=== PATIENT | male | born 1955 | race Caucasian/White ===

== ENCOUNTER 2016-12-20 11:34 | Emergency (ER) | payer OTHER ==
--- NOTE | ~2016-12-20 | CR243 ---
[facility] [[email or web address]]. [facility] A Service of [facility] & [facility] RADIOLOGY TEXT RESULTS PATIENT: RAE ERVIN LOCATION: SED : 53 UNIT #: [id number] AGE: [address]: KELLY KRAMER PA-C SEX: M ORDER DR: [id number] [place] [id number] E MR#: [id number] Acc #: [id number] NAME: RAE ERVIN : 1955 SEX: M STUDY DATE/TIME: 12/20/2016 12:15 UNIT: SED ROOM: STUDY DESCRIPTION: CR Thoracic Spine 3 Views Attending Physician: Kelly Kramer Pa-C Ordering Physician: Kelly Kramer Pa-C Primary Care Physician: Dejuan Ansari Jr., M.D. MEDICAL IMAGING REPORT This report is preliminary unless electronic signature is present. EXAM 3 views thoracic spine INDICATION Upper back pain and spasms for 5 days after working under the dash of his car. FINDINGS No acute fracture or subluxation of the thoracic spine is identified. Thoracic vertebral body alignment appears within normal limits. 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 No aggressive osseous abnormalities are seen. IMPRESSION No acute disease. Dictated by... Marjan Zuh M.D. THIS IS AN ELECTRONICALLY VERIFIED REPORT Marjan Zhu M.D. at 12/20/2016 4:45 PM SIMON/jw TD: 12/20/2016 14:44 JOB #: [id number] MEDICAL IMAGING REPORT Page 1 of 1
[~2016-12-20 11:34] MED LIST: AMIODARONE PO; ASPIRIN81 M1 PO; CLOPIDOGREL75 MG PO; COUMADIN5 MG PO; FARXIGA10 MG PO; GLUCOPHAGE500 M1 PO; HYDROCODON-ACE1 EAC7 PO; LASIX PO; LEVAQUIN250 MG PO; LIPITOR PO; LISINOPRIL-HCTZ1 T19 PO; LOPRESSOR PO; PRILOSEC PO; WARFARIN SODIU7.5 MG PO; ZESTORETIC PO
[2016-12-20 12:04] LABS: BASOPHIL# 0.1 X10e3 (0-0.3); BASOPHIL% 0.6 % (0-2.5); EOSINOPHIL# 0.1 X10e3 (0-0.7); EOSINOPHIL% 0.8 % (0.0-7.0); HEMATOCRIT 47.7 % (38.0-50.0); HEMOGLOBIN 15.9 gm/dL (13.0-16.0); LYMPHOCYTE# 2.4 X10e3 (1.0-3.5); LYMPHOCYTE% 26.3 % (17.0-45.0); MEAN CELL VOLUME 90.7 FL (83-96); MEAN CORPUSCULAR HEMOGLOBIN 30.3 PG (28-34); MEAN CORPUSCULAR HGB CONC 33.4 g/dL (30-36); MEAN PLATELET VOLUME 7.9 FL (6.5-11.5); MONOCYTE# 0.6 X10e3 (0-1.0); MONOCYTE% 6.5 % (3.0-12.0); NEUTROPHIL% 65.8 % (40-75); PLATELET COUNT 241 X10e3 (140-420); RED BLOOD COUNT 5.25 X10e (3.90-5.60); RED CELL DISTRIBUTION WIDTH 15.7 % (11.0-15.5); WHITE BLOOD COUNT 9.1 X10e3 (4.0-10.5)
[2016-12-20 12:14] LABS: DIFF IND NO
[2016-12-20 12:18] LABS: INR 2.5; PROTHROMBIN TIME (PATIENT) 28.1 SECONDS (9.5-12.4)
[2016-12-20 12:25] LABS: PARTIAL THROMBOPLASTIN TIME 38.4 SECONDS (25.6-38.1)
[2016-12-20 12:27] LABS: ALBUMIN SERUM 4.8 g/dL (3.5-5.0); BILIRUBIN,TOTAL 0.9 mg/dL (0.2-2.0); BUN/CREATININE RATIO 15.45; CALCIUM SERUM 9.8 mg/dL (8.4-10.2); CREATININE SERUM 1.1 mg/dL (0.6-1.4); GLOM FILT RATE Estimated 71.6 mL/min (>60); POTASSIUM 4.2 mmol/L (3.5-5.1); PROTEIN TOTAL SERUM 8.2 g/dL (6.0-8.3)
== END 2016-12-20 13:35 | disposition home or self-care (01) ==
LOC: SED 11:34
PROVIDERS: Physician Assistant
DX: S29.012A Strain of muscle and tendon of back wall of thorax, initial encounter (principal); E11.9 Type 2 diabetes mellitus without complications; I11.0 Hypertensive heart disease with heart failure; I50.9 Heart failure, unspecified; Z95.1 Presence of aortocoronary bypass graft; Z88.8 Allergy status to other drugs, medicaments and biological substances; X58.XXXA Exposure to other specified factors, initial encounter; Y92.9 Unspecified place or not applicable
CPT/HCPCS: 72072; 80053; 82947; 85025; 85610; 85730; 96372; 99283; J2270